=== PATIENT | female | born 1975 | race Caucasian/White ===

== ENCOUNTER 2017-05-07 17:12 | Emergency (ER) | payer BC, OTHER ==
[2017-05-07 18:10] LABS: #Eosinphils 0.2 thou/uL (0.0-0.7); #Lymphocytes 2.2 thou/uL (1.20-3.40); #Monocytes 0.6 thou/uL (0.11-0.59); #Neutrophils 7.4 thou/uL (1.40-6.50); %Basophils 0.4 % (0.0-1.0); %Eosinophils 1.6 % (0.0-10.0); %Lymphocytes 21.2 % (21.0-51.0); %Monocytes 5.3 % (0.0-10.0); %Neutrophils 71.5 % (42.0-75.0); Hemoglobin 13.7 g/dL (12.0-16.0); Mean Corpuscular HGB CONC 32.1 g/dL (32.0-36.0); Mean Corpuscular Hemoglobin 28.1 pg (27.0-31.0); Mean Corpuscular Volume 87.6 fl (81.0-99.0); Mean Platelet Volume 8.4 fL (7.4-10.4); Platelet Count 329 thou/uL (130-400); RBC Distribution Width 12.7 % (11.5-14.5); Red Blood Cell (RBC) Count 4.88 mill/uL (4.20-5.40); White Blood Cell (WBC) Count 10.4 thou/uL (4.8-10.8)
[2017-05-07 18:32] LABS: ALT (SGPT) 28 U/L (8-55); AST (SGOT) 30 U/L (5-34); Albumin 4.4 g/dL (3.5-5.0); Alkaline Phosphatase 89 U/L (40-150); Anion Gap 16 mmol/L (10-20); BUN (Urea Nitrogen) 11 mg/dL (7.0-18.7); Bilirubin, Total 0.4 mg/dL (0.2-1.2); CK (CPK) 83 U/L (29-168); Calc. Creatinine Clearance 0 mL/min (70-130); Carbon Dioxide 26 mmol/L (22-29); Chloride 99 mmol/L (98-107); Estimated GFR-MDRD 73; Globulin 3.6 g/dL (2.4-3.5); Glucose 116 mg/dL (70-105); Potassium 3.4 mmol/L (3.5-5.1); Sodium 138 mmol/L (136-145)
[2017-05-07 18:37] LABS: CKMB 0.7 ng/mL (0-6.6); Troponin I Less than 0.010 ng/mL (< 0.028)
== END 2017-05-07 19:05 | disposition home or self-care (01) ==
LOC: ERS 17:12
DX: I45.81 Long QT syndrome (principal); I10 Essential (primary) hypertension; F41.9 Anxiety disorder, unspecified; Z79.899 Other long term (current) drug therapy
CPT/HCPCS: 80053; 82553; 83735; 84484; 85025; 93005; 96360

== ENCOUNTER 2018-03-04 08:02 | Outpatient (CLI) | payer BC | END 2018-03-04 08:03 | disposition home or self-care (01) | LOC: BICMAMMO 08:02 | PROVIDERS: ATTEND Student in an Organized Health Care Education/Training Program | DX: Z12.31 Encounter for screening mammogram for malignant neoplasm of breast (principal) | CPT/HCPCS: 77063; 77067 ==

== ENCOUNTER 2018-03-11 12:55 | Outpatient (CLI) | payer BC | END 2018-03-11 12:56 | disposition home or self-care (01) | LOC: BICMAMMO 12:55 | PROVIDERS: ATTEND Student in an Organized Health Care Education/Training Program | DX: N64.89 Other specified disorders of breast (principal) | CPT/HCPCS: G0279 ==

== ENCOUNTER → 2018-03-15 | Day surgery (SDC) | payer BC ==
--- NOTE | 2018-03-15 09:12 | MMO ---
LEFT BREAST STEREOTACTIC BIOPSY SURGICAL SPECIMEN UNILATERAL DIAGNOSTIC LEFT BREAST MAMMOGRAM: HISTORY: Left breast calcification. COMPARISON: 03/11/2017, 03/11/2018, 03/04/1018. FINDINGS: Successful left breast stereotactic biopsy. A total of six 10-gauge core biopsy samples were obtaine d. Calcifications are present. Post biopsy clip was placed. TECHNIQUE: Consent was obtained to perform a left breast stereotactic biopsy. The patient was placed in prone p osition on the stereotactic table. The left breast was placed through the hole in the table. The br east was compressed in the lateral projection. The calcifications were identified. The skin was pre pped and draped in sterile fashion. 1% Lidocaine, buffered with sodium bicarbonate, was used for loc al anesthesia. Calcifications were evaluated pre- and post firing. A stereotactic biopsy was perfor med. A total of six 10-gauge core biopsy samples were obtained. Samples were radiographed. Calcifi cations are present. Post biopsy clip was placed and the clip was confirmed to be outside of the nee dle. Post biopsy mammogram was performed. SURGICAL SPECIMEN: There are calcifications present in the surgical specimen. POST BIOPSY MAMMOGRAM: There are residual calcifications in the upper outer left breast. Surgical clip is identified. On t he CC projection, the clip is medial t the biopsy site. On the MLO projection, the clip is slightly inferior to the biopsy site. IMPRESSION: 1. Successful left breast stereotactic biopsy. Calcifications are present. 2. Post biopsy clip is placed. The clip is slightly medial and inferior to the calcification/biopsy site. 3. Final pathologic diagnosis is pending. POS: JUANITA
== END ==
LOC: MAMMO 06:55
PROVIDERS: ATTEND Student in an Organized Health Care Education/Training Program
PROC: 0HBU3ZX Excision of Left Breast, Percutaneous Approach, Diagnostic (ICD-10-PCS; principal; 2018-03-15)
DX: D05.12 Intraductal carcinoma in situ of left breast (principal)
CPT/HCPCS: 19283; 76098; 88305; 88341; 88342